=== PATIENT | male | born 1980 ===

== ENCOUNTER 2017-08-22 21:15 | Inpatient (IN) | payer MEDICARE ==
[2017-08-22 22:09] LABS: BASO % 0.5 % (0.0-2.0); EOS # 0.1 K/uL (0.0-0.7); EOS % 1.3 % (0.0-4.0); HEMOGLOBIN 11.2 g/dL (12.0-18.0); LYMPH # 0.8 K/uL (1.0-4.3); MEAN CELL VOLUME 85.7 fL (80.0-94.0); MEAN CORPUSCULAR HEMOGLOBIN 28.7 pg (27.0-31.0); MEAN CORPUSCULAR HGB CONC 33.5 g/dL (33.0-37.0); MONO # 0.7 K/uL (0.0-0.8); MONO % 9.5 % (0.0-10.0); NEUT # 5.7 K/uL (1.8-7.0); NEUT % 77.7 % (50.0-75.0); RBC 3.9 Mil/uL (4.40-5.90); RED CELL DISTRIBUTION WIDTH 13.7 % (11.5-14.5); WHITE BLOOD COUNT 7.3 K/uL (4.8-10.8)
[2017-08-22 22:25] LABS: ALBUMIN 3.5 g/dL (3.5-5.0); ALT/SGPT 81 U/L (21-72); AST/SGOT 84 U/L (17-59); BLOOD UREA NITROGEN 13 mg/dL (9-20); CALCIUM 8.6 mg/dl (8.6-10.4); GFR AFRICAN-AMERICAN > 60; GFR NON-AFRICAN AMERICAN > 60
[2017-08-22 22:57] LABS: SQUAMOUS EPITHIAL < 1 /hpf (0-5); URINE BILIRUBIN NEGATIVE (NEGATIVE); URINE BLOOD NEGATIVE (NEGATIVE); URINE CLARITY Hazy (Clear); URINE COLOR Amber (YELLOW); URINE GLUCOSE (UA) NORMAL (Normal); URINE LEUKOCYTE ESTERASE 1+ Leu/uL (Negative); URINE PROTEIN 1+ mg/dL (NEGATIVE)
[2017-08-22 23:11] LABS: BARBITURATES, UR NEGATIVE (NEGATIVE); BENZODIAZEPINES, UR NEGATIVE (NEGATIVE); PHENCYCLIDINE, UR NEGATIVE (NEGATIVE)
[2017-08-22 23:24] LABS: OPIATES, UR POSITIVE (NEGATIVE)
--- NOTE | 2017-08-23 00:54 | C.PDOC ---
History Of Present Illness 37 y/p male with a history of heroin abuse presents to the ED for suicidal ideation. Patient states he has been feeling very depressed and yesterday was preoccupied with thoughts of killing himself by jumping off a building. He claims to be hearing voices and admits to daily usage of sniffing heroin. Patient denies any acute withdrawal symptoms. Of note, he was pre-screened for re-admission to crisis. PMD: none provided Chief Complaint (Nursing): Psychiatric Evaluation History Per: Patient History/Exam Limitations: no limitations Onset/Duration Of Symptoms: Hrs Current Symptoms Are (Timing): Still Present Modifying Factor(s): Narcotics Associated Symptoms: Depression, Paranoia, Suicidal Thoughts, Suicidal Plan Recent travel outside of the [place]: No Past Medical History Reviewed: Historical Data, Nursing Documentation, Vital Signs Vital Signs: Last Vital Signs Temp 97.8 F 08/23/17 06:37 Pulse 88 08/23/17 06:37 Resp 18 08/23/17 06:37 BP 123/74 08/23/17 06:37 Pulse Ox 98 08/23/17 03:44 - Medical History PMH: Depression, Schizophrenia Denies: Diabetes, Hepatitis, HIV, HTN, Chronic Kidney Disease, Seizures, Sexually Transmitted Disease Surgical History: No Surg Hx - [facility] Procedures GROUP PSYCHOTHERAPY (05/26/17) INDIVIDUAL PSYCHOTHERAPY, BEHAVIORAL (05/26/17) Family History: States: Unknown Family Hx - Social History Hx Alcohol Use: No Hx Substance Use: Yes (used heroin and cocaine in past few days) Review Of Systems Except As Marked, All Systems Reviewed And Found Negative. Constitutional: Positive for: Other (heroin abuse) Psych: Positive for: Depression, Suicidal ideation, Other (hearing voices). Negative for: Withdrawal Physical Exam - Physical Exam Appears: Well, No Acute Distress, Other (cooperative on exam) Skin: Normal Color, Warm, Dry, No Other (no evidence of IV drug use showing on skin, stigmata) Head: Atraumatic, Normacephalic Eye(s): bilateral: Normal Inspection, PERRL, EOMI Nose: Normal Throat: Normal Neck: Normal Cardiovascular: Rhythm Regular, No Murmur Respiratory: Normal Breath Sounds, No Decreased Breath Sounds Gastrointestinal/Abdominal: Normal Exam, Soft, No Tenderness Back: Normal Inspection, No CVA Tenderness, No Vertebral Tenderness Extremity: Normal ROM, No Pedal Edema Neurological/Psych: Oriented x3 ED Course And Treatment - Laboratory Results Result Diagrams: 08/22/17 21:58 08/22/17 21:58 O2 Sat by Pulse Oximetry: 98 (RA) Pulse Ox Interpretation: Normal Medical Decision Making Medical Decision Making: Impression: Suicidal ideation and talia substance abuse. Initial Plan: * Catapres 0.1 mg PO * Methadone 20 mg PO * Seroquel 100 mg PO * Food * Crisis Evaluation Scribe Attestation: Documented by Chuck Box acting as a scribe Luke Porras MD. Scribe Attestation: All medical record entries made by the Scribe were at my direction and personally dictated by me. I have reviewed the chart and agree that the record accurately reflects my personal performance of the history, physical exam, medical decision making, and the department course for this patient. I have also personally directed, reviewed, and agree with the discharge instructions and disposition. Disposition - Disposition Disposition: HOSPITALIZED Disposition Time: 08:44 Condition: GOOD - Clinical Impression Clinical Impression: Moderate major depression, single episode, Substance induced mood disorder
--- NOTE | 2017-08-23 02:02 | PCM.BM ---
<Sylvester Salazar - Last Filed: 08/23/17 01:59> Treatment Plan Problems - Problems identified on initial assessmt Depression Date Initiated: 08/23/17 Time Initiated: 01:35 Assessment reference: NA Status: Active Suicidal Ideation Date Initiated: 08/23/17 Time Initiated: 01:35 Assessment reference: NA Status: Active Substance Abuse Date Initiated: 08/23/17 Time Initiated: 01:35 Assessment reference: NA Status: Active Treatment assets and liabiliti Patient Assests: cooperative, self-reliant, ADL independent, physically healthy , negotiates basic needs, cognitively intact Patient Liabilities: live alone, financial problems, poor support system, relationship conflicts, substance abuse, language/speech - Milieu Protocol Maintain good personal hygiene: daily Encourage regular showers, daily Remind patient to perform daily oral care, daily Assist patient to perform ADL's Maintain personal safety: every shift Educate patient to report safety concerns to staff, every shift Monitor environment for contraband/sharps Medication safety: Monitor for expected outcome, potential side effects: every shift, Assess barriers to learning: every shift, Assess readiness for medication education: every shift <Chanelle Concepcion - Last Filed: 08/24/17 11:44> Family Contact Family involvement: Famliy/SO not involved - Goals for Treatment Patient goals for treatment: "I want to go to rehab." Discharge/Continuing Care - Education Needs Education Needs: Patient Medication, Patient Coping Skills, Patient Placement options, Patient Community resources - Discharge Discharge Criteria: Tolerates medication w/o severe side effects, No longer exhibiting s/s of withdrawal Discharge to:: Substance Abuse Rehab - Treatment Team Participation Discussed with Family/SO: No Was Patient/Family/SO present at Treatment Team Meeting: Yes <Kayla Cadena - Last Filed: 08/25/17 12:10> - Diagnosis (1) Opioid use disorder, severe, dependence Status: Acute Interventions: 08/25/17 12:10 * Assess 7x/week regarding severity of withdrawal * Educate regarding risks, benefits, side effects and alternatives of medications * Use Motivational Interviewing for abstinence * Use CBT for relapse prevention * Medication management for withdrawal symptoms * Encourage medication assisted treatment * (2) Depression Status: Acute Interventions: 08/25/17 12:10 * Assess/adjust medications daily and /or as needed * See patient on an individual basis 7x/week to assess symptoms of depression * Monitor for side effects & effectiveness of medications *
[2017-08-23 03:38] VITALS: O2SAT 98
[2017-08-23] MEDS ORDERED: Aluminum Hydroxide/Magnesium Hydroxide Susp (30 mL) PO PRN (19:24)
--- NOTE | 2017-08-23 20:44 | PCM.PSYCH ---
Initial Psychiatric Evaluation - Initial Psychiatric Evaluation Type of Admission: Voluntary Legal Status: Capacity Current Medications: Active Medications Generic Name Dose Route Start Last Admin Trade Name Freq PRN Reason Stop Dose Admin Acetaminophen 650 mg 08/23/17 19:24 Tylenol 325mg Tab PO Q4H PRN Fever greater than 101 F Acetaminophen 650 mg 08/23/17 19:25 Tylenol 325mg Tab PO Q6 PRN Fever >100.4 F Al Hydrox/Mg Hydrox/Simethicone 30 ml 08/23/17 19:24 Maalox 30 Ml PO TID PRN Indigestion / Heartburn Clonidine HCl 0.1 mg 08/23/17 01:53 Catapres PO Q6 PRN withdrawal Gabapentin 100 mg 08/24/17 10:00 Neurontin PO TID BAKARI Ibuprofen 600 mg 08/23/17 19:25 08/23/17 19:30 Motrin Tab PO 600 mg Q6 PRN Administration Pain, moderate (4-7) Loperamide HCl 2 mg 08/23/17 19:24 Imodium PO Q8 PRN Diarrhea Methadone HCl 0 mg 08/24/17 10:00 Methadone PO 08/27/17 09:59 DAILY BAKARI Taper Ondansetron HCl 4 mg 08/23/17 19:24 Zofran Tab PO Q8 PRN Nausea/Vomiting Quetiapine Fumarate 100 mg 08/23/17 22:00 Seroquel PO HS BAKARI Past Psychiatric History - Past Psychiatric History Pertinent Medical Hx (Current Medical&Sleep Prob, Allergies): Allergies Allergy/AdvReac Type Severity Reaction Status Date / Time haloperidol [From Haldol] AdvReac dyskinesia Verified 08/22/17 21:29 risperidone [From Risperdal] AdvReac dyskinesia Verified 08/22/17 21:29 Divalproex [Depakote DR(*BID*)] 500 mg PO AMHS 30 Days #60 tcp 05/31/17 FLUoxetine [Prozac] 40 mg PO DAILY 30 Days #60 cap 05/31/17 QUEtiapine [SEROquel] 400 mg PO HS 30 Days #60 tab 05/31/17 QUEtiapine [Seroquel] 100 mg PO DAILY 30 Days #30 tab 05/31/17
--- NOTE | 2017-08-24 11:25 | PCM.PYCHPN ---
Psychiatric Progress Note - Psychiatric Progress Note Patient seen today, length of contact: 15 mINUTES Mental Status Examination - Homicidal Ideation Homicidal Ideation: No
--- NOTE | 2017-08-24 20:03 | PCM.PYCHPN ---
Psychiatric Progress Note - Psychiatric Progress Note Patient seen today, length of contact: 15 mINUTES Mental Status Examination - Homicidal Ideation Homicidal Ideation: No
[2017-08-25 06:31] VITALS: BP 117/71; PULSE 64; RESP 18; TEMP 98.1
--- NOTE | 2017-08-25 12:14 | PCM.PYCHDC ---
Mental Status Examination - Mental Status Examination Orientation: Person, Place, Situation, Time Memory: Intact Mood: Anxious Affect: Constricted Speech: Appropriate Attention: WNL Concentration: Poor Association: WNL Fund of Knowledge: WNL Formal Thought Process: No Impairment Suicidal Ideation: No Current Homicidal Ideation?: No Discharge Summary - Discharge Note Reason for Hospitalization: Depression, opioid withdrawal Consultations:: List each consultation separately and include: 1. Reason for request. 2. Findings. 3. Follow-up Summary of Hospital Course include:: 1. Description of specific treatment plan utilized for patients during their course of treatmen. 2. Summarize the time- course for resolution of acute symptoms and/or regressed behaviors. 3. Describe issues identified and worked on during hospitalization. 4. Describe medication utilized. 5. Describe medical problems identified and treated. 6. Reassessment of suicide risk Summary of Hospital Course: The pt was admitted and started on treatment with psychotherapy, support, psychoeducation and medications. AR used briefly. The pt did not attend groups or activitiesy. All the risks and benefits of medications are discussed and the patient understood and agreed. The pt improved with the treatments provided. HOwever today he suddenly denied to leave All the risks of AMA discussed, incl. relapse and OD and even He still left He was future-oriented, not suicidal and better, nor screenable - Final Diagnosis (DSM 5) Condition upon Discharge: GOOD DSM 5: Major depression, recurrent, severe Opioid withdrawal Opioid use d/o - severe Disposition: AGAINST MEDICAL ADVICE Follow-up Treatment Plan: Use relapse prevention skills Return to ER or call 911 if suicidal, homicidal or symptoms relapse. Stay away from stress, alcohol and drugs. See primary doctor regularly and get labs. - Smoking Cessation Smoking Cessation Medication prescribed: No - Antipsychotic Medications Pt discharged on 2 or more routine antipsychotic medications: No
== END 2017-08-25 12:46 | disposition left against medical advice (07) | DRG 885 ==
LOC: C.ER 21:15 → C.5E 08-23 00:53
PROVIDERS: ADMIT Psychiatry & Neurology Psychiatry; ATTEND Psychiatry & Neurology Psychiatry
PROC: HZ2ZZZZ Detoxification Services for Substance Abuse Treatment (ICD-10-PCS; principal; 2017-08-23)
DX: F33.2 Major depressive disorder, recurrent severe without psychotic features (principal); F11.23 Opioid dependence with withdrawal; R45.851 Suicidal ideations; F14.10 Cocaine abuse, uncomplicated; F12.10 Cannabis abuse, uncomplicated